=== PATIENT | female | born 1990 | race Two or more races ===

== ENCOUNTER 2019-05-06 10:27 | Emergency (ER) | payer MEDICAID ==
[~2019-05-06] VITALS: Ht 157.5 cm; Wt 84.0 kg
[2019-05-06] MEDS ORDERED: KETOROLAC 30MG/ML VIAL IV STA (11:26)
[2019-05-06] MEDS ORDERED: SODIUM CHLORIDE 0.9% 1,000 ML IV ONE ×3 (11:26→13:46)
[2019-05-06] MEDS ORDERED: PHENAZOPYRIDINE HCL 100MG TABLET PO ONE (11:30)
[2019-05-06 12:24] LABS: BASOPHILS % 0.2 % (0.0-2.0); EOSINOPHILS % 0.4 % (0.0-5.0); HEMATOCRIT. 39.2 % (36.0-48.0); LYMPHOCYTES % 11.5 % (20.0-50.0); MEAN CORPUSCULAR HEMOGLOBIN 25.2 pg (28.0-32.0); MEAN CORPUSCULAR VOLUME 75.8 fL (81.0-99.0); MEAN PLATELET VOLUME 8.5 fl (7.4-10.4); NEUTROPHILS % 83.9 % (40.0-76.0); PLATELET 260 x1000/uL (130-400); RED BLOOD CELL COUNT 5.17 mill/uL (4.2-5.4); RED CELL DISTRIBUTION WIDTH 14.7 % (11.6-14.6)
[2019-05-06 12:28] LABS: CHLORIDE 105 mEq/L (98-107)
[2019-05-06 12:29] LABS: HCG SCREEN NEGATIVE
[2019-05-06 14:39] LABS: CLARITY URINE CLEAR (CLEAR); COLOR URINE YELLOW (YELLOW); KETONES URINE NEGATIVE (NEGATIVE); LEUKOCYTE ESTERASE URINE 3+ (NEGATIVE); NITRITE URINE NEGATIVE (NEGATIVE); OCCULT BLOOD URINE 2+ (NEGATIVE); PROTEIN URINE NEGATIVE (NEGATIVE); SPECIFIC GRAVITY URINE 1.006 (1.005-1.030); UROBILINOGEN URINE 0.2 E.U./dL (0.2-1.0)
[2019-05-06] MEDS ORDERED: CEFTRIAXONE 2 G PREMIX 50 ML IV ONE (14:45)
[2019-05-06] MEDS ORDERED: ONDANSETRON HCL 4MG/2ML INJ IV ONE (14:45)
[2019-05-06] MEDS ORDERED: MORPHINE SULFATE 4 MG/ML CPJ (NOT FOR IM USE) IV ONE (15:45)
[2019-05-06 17:32] VITALS: BP 126/62
== END 2019-05-06 18:02 | disposition home or self-care (01) ==
LOC: ER 11:00
DX: N10 Acute pyelonephritis (principal)
CPT/HCPCS: 36415; 74176; 80053; 81003; 81025; 83605; 83690; 84703; 85025; 85610; 87040; 87077; 87086; 87186; 96365; 96375; 99284; J0696; J1885; J2270; J2405; J7030

== ENCOUNTER 2019-06-01 09:31 | Inpatient (IN) | payer MEDICAID ==
[~2019-06-01] VITALS: Ht 157.5 cm; Wt 87.5 kg
[2019-06-01] MEDS ORDERED: MORPHINE SULFATE 4 MG/ML CPJ (NOT FOR IM USE) IV STA (10:14)
[2019-06-01] MEDS ORDERED: ONDANSETRON HCL 4MG/2ML INJ IV STA (10:14)
[2019-06-01] MEDS ORDERED: KETOROLAC 30MG/ML VIAL IV STA (10:14)
[2019-06-01] MEDS ORDERED: CEFTRIAXONE 2 G PREMIX 50 ML IV ONE (10:15)
[2019-06-01] MEDS ORDERED: SODIUM CHLORIDE 0.9% 1000ML BAG (SEPSIS BOLUS) IV ONE (10:15)
[2019-06-01] MEDS ORDERED: PHENAZOPYRIDINE HCL 100MG TABLET PO ONE (10:30)
[2019-06-01 11:14] LABS: BASOPHILS % 0.3 % (0.0-2.0); EOSINOPHILS % 1.2 % (0.0-5.0); HEMATOCRIT. 38.8 % (36.0-48.0); LYMPHOCYTES % 24.9 % (20.0-50.0); MEAN CORPUSCULAR HEMOGLOBIN 25.4 pg (28.0-32.0); MEAN CORPUSCULAR VOLUME 75.7 fL (81.0-99.0); MEAN PLATELET VOLUME 8.6 fl (7.4-10.4); MONOCYTES % 5.4 % (2.0-8.0); NEUTROPHILS % 68.2 % (40.0-76.0); PLATELET 258 x1000/uL (130-400); RED BLOOD CELL COUNT 5.12 mill/uL (4.2-5.4); RED CELL DISTRIBUTION WIDTH 14.6 % (11.6-14.6)
[2019-06-01 11:21] LABS: CHLORIDE 105 mEq/L (98-107)
[2019-06-01 11:24] LABS: HCG SCREEN NEGATIVE
[2019-06-01] MEDS ORDERED: MORPHINE SULFATE 10 MG/ML CPJ IV ONE (12:30)
[2019-06-01 12:39] LABS: CLARITY URINE TURBID (CLEAR); COLOR URINE YELLOW (YELLOW); KETONES URINE NEGATIVE (NEGATIVE); LEUKOCYTE ESTERASE URINE 3+ (NEGATIVE); NITRITE URINE NEGATIVE (NEGATIVE); OCCULT BLOOD URINE 3+ (NEGATIVE); PH URINE 5.5 (4.5-8.0); PROTEIN URINE TRACE (NEGATIVE); SPECIFIC GRAVITY URINE 1.024 (1.005-1.030); UROBILINOGEN URINE 0.2 E.U./dL (0.2-1.0)
[2019-06-01] MEDS ORDERED: POTASSIUM CHLORIDE 20MEQ TABLET SR PO ONE (13:15)
[2019-06-01] MEDS ORDERED: SODIUM CHLORIDE 0.9% 1,000 ML IV ONE (15:10)
[2019-06-01] MEDS ORDERED: ONDANSETRON HCL 4MG/2ML INJ IV ONE (15:15)
[2019-06-01] MEDS ORDERED: CLONIDINE 0.1MG TABLET PO PRN (15:45)
[2019-06-01] MEDS ORDERED: ONDANSETRON HCL 4MG/2ML INJ IV PRN (15:45)
[2019-06-01] MEDS ORDERED: CEFTRIAXONE 1 G PREMIX 50 ML IV SCH (15:45)
[2019-06-01] MEDS ORDERED: MAGNESIUM/ALUMINUM HYDROXIDE/SIMETHICONE 30ML UDC PO PRN (15:45)
[2019-06-01] MEDS ORDERED: DOCUSATE SODIUM 100MG CAPSULE PO PRN (15:45)
[2019-06-01] MEDS ORDERED: ACETAMINOPHEN 325MG TABLET PO PRN (15:45)
[2019-06-01] MEDS ORDERED: GUAIFENESIN 200MG/10ML SUGAR FREE UDC PO PRN (15:45)
[2019-06-01] MEDS ORDERED: IPRATROPIUM/ALBUTEROL 0.5-3(2.5)MG/3ML NEB HHN PRN (15:45)
[2019-06-01] MEDS ORDERED: DIPHENHYDRAMINE 50MG/ML VIAL IV PRN (15:45)
[2019-06-01] MEDS ORDERED: ENOXAPARIN 40MG/0.4ML SYR SUBCUT NR (16:00)
[2019-06-01 16:16] LABS: PHOSPHORUS 2.9 mg/dL (2.5-4.9)
[2019-06-01] MEDS: SODIUM CHLORIDE 0.9% 1,000 ML IV SCH (16:45)
[2019-06-01] MEDS: MORPHINE SULFATE 2 MG/ML CPJ (NOT FOR IM USE) IV PRN (19:14)
[2019-06-01 21:00] VITALS: BP 98/57
[2019-06-02] VITALS: BP 106/59
[2019-06-02] MEDS: MORPHINE SULFATE 2 MG/ML CPJ (NOT FOR IM USE) IV PRN ×5 (00:27→17:06)
[2019-06-02 04:00] VITALS: BP 123/70
[2019-06-02] MEDS: SODIUM CHLORIDE 0.9% 1,000 ML IV SCH (04:30)
[2019-06-02 08:00] VITALS: BP 119/69
[2019-06-02] MEDS ORDERED: CEFTRIAXONE 1 G PREMIX 50 ML IV SCH (11:00)
[2019-06-02 12:08] LABS: BASOPHILS % 0.4 % (0.0-2.0); EOSINOPHILS % 1.1 % (0.0-5.0); HEMATOCRIT. 36.8 % (36.0-48.0); HEMOGLOBIN. 12.4 g/dL (12.0-16.0); MEAN CORPUSCULAR HEMOGLOBIN 25.7 pg (28.0-32.0); MEAN CORPUSCULAR VOLUME 76.2 fL (81.0-99.0); MEAN PLATELET VOLUME 8.7 fl (7.4-10.4); MONOCYTES % 5.7 % (2.0-8.0); NEUTROPHILS % 54.8 % (40.0-76.0); PLATELET 237 x1000/uL (130-400); RED BLOOD CELL COUNT 4.82 mill/uL (4.2-5.4); RED CELL DISTRIBUTION WIDTH 14.2 % (11.6-14.6)
[2019-06-02 12:09] VITALS: BP 99/55
[2019-06-02 12:38] LABS: CHLORIDE 106 mEq/L (98-107)
[2019-06-02 12:50] LABS: HDL CHOLESTEROL 48 mg/dL (40-59)
[2019-06-02 12:51] LABS: LDL CHOLESTEROL 90 mg/dL (5-100)
[2019-06-02 16:00] VITALS: BP 115/59
[2019-06-02] MEDS ORDERED: ENOXAPARIN 40MG/0.4ML SYR SUBCUT SCH (16:00)
[2019-06-02 20:00] VITALS: BP 113/76
== END 2019-06-02 21:36 | disposition left against medical advice (07) | DRG 463 ==
LOC: ER 09:31 → 6EST 13:37 → EDBEDREQ 13:39 → ENRESERV 19:30
PROVIDERS: ADMIT Internal Medicine; ATTEND Internal Medicine
DX: N12 Tubulo-interstitial nephritis, not specified as acute or chronic (principal); E87.6 Hypokalemia; Z53.21 Procedure and treatment not carried out due to patient leaving prior to being seen by health care provider; R73.9 Hyperglycemia, unspecified; Z87.440 Personal history of urinary (tract) infections
CPT/HCPCS: 36415; 76770; 80048; 80061; 81003; 83605; 83735; 84100; 84443; 84703; 93970; 99291; J0696; J1650; J1885; J2270; J2405; J7030

== ENCOUNTER 2019-09-13 21:57 | Emergency (ER) | payer MEDICAID ==
[~2019-09-13] VITALS: Ht 165.1 cm; Wt 80.0 kg
[2019-09-13 22:19] VITALS: BP 118/60
[2019-09-14] MEDS ORDERED: ONDANSETRON HCL 4MG/2ML INJ ONE (03:45)
[2019-09-14 13:27] LABS: BASOPHILS % 0.6 % (0.0-2.0); EOSINOPHILS % 2.2 % (0.0-5.0); HEMATOCRIT. 40.1 % (36.0-48.0); HEMOGLOBIN. 13.6 g/dL (12.0-16.0); LYMPHOCYTES % 48.3 % (20.0-50.0); MEAN CORPUSCULAR HEMOGLOBIN 26.2 pg (28.0-32.0); MEAN CORPUSCULAR VOLUME 77.2 fL (81.0-99.0); MEAN PLATELET VOLUME 8.4 fl (7.4-10.4); MONOCYTES % 6.5 % (2.0-8.0); NEUTROPHILS % 42.4 % (40.0-76.0); PLATELET 297 x1000/uL (130-400); RED CELL DISTRIBUTION WIDTH 14.2 % (11.6-14.6)
[2019-09-14 13:38] LABS: CHLORIDE 104 mEq/L (98-107)
== END 2019-09-14 02:56 | disposition home or self-care (01) ==
LOC: ER 21:57
DX: R07.89 Other chest pain (principal); J40 Bronchitis, not specified as acute or chronic; R11.10 Vomiting, unspecified; F12.10 Cannabis abuse, uncomplicated
CPT/HCPCS: 71045; 93005; 99284; J2405